=== PATIENT | female | born 1950 | race Caucasian/White ===

== ENCOUNTER 2021-10-26 14:48 | Emergency (ER) | payer MEDICARE, OTHER ==
[2021-10-26 14:57] VITALS: BP 140/106
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
== END 2021-10-26 16:44 | disposition home or self-care (01) ==
LOC: ED 14:48
DX: S02.2XXA Fracture of nasal bones, initial encounter for closed fracture (principal); V19.9XXA Pedal cyclist (driver) (passenger) injured in unspecified traffic accident, initial encounter
CPT/HCPCS: 99282; 99284